=== PATIENT | female | born 1980 | race African-American/Black ===

== ENCOUNTER → 2018-04-20 | Day surgery (SDC) | payer OTHER ==
[~2018-04-20] MED LIST: BISO1TAB7 PO; IV RINGERS,LACTATED 1000ML 1,000 ML IV SCH; LIDOCAINE 1% PF 2 ML VIAL. ID PRN; MIDAZOLAM HCL/PF 2 MG/2 ML VIAL. IV PRN; NORE-68 PO; PROPOFOL 40 ML IV ONE; fentaNYL PF VIAL 100 MCG/2 ML VIAL IV PRN
[2018-04-20 12:31] LABS: U PREG PATIENT NEGATIVE (NEG)
[2018-04-20 13:25] VITALS: BP 148/62
== END | disposition home or self-care (01) ==
LOC: SURG 11:50
PROVIDERS: ATTEND Internal Medicine Gastroenterology
DX: K64.0 First degree hemorrhoids (principal); I10 Essential (primary) hypertension; Z80.0 Family history of malignant neoplasm of digestive organs; Z82.49 Family history of ischemic heart disease and other diseases of the circulatory system; Z72.89 Other problems related to lifestyle; Z79.899 Other long term (current) drug therapy
CPT/HCPCS: 45378; 81025; J2704

== ENCOUNTER → 2021-06-16 | Outpatient (CLI) | payer OTHER ==
[2018-04-20 13:25] VITALS: BP 148/62
[~2021-06-16] MED LIST changes: -BISO1TAB7 PO; +BISO1TAB84 PO; -IV RINGERS,LACTATED 1000ML 1,000 ML IV SCH; -LIDOCAINE 1% PF 2 ML VIAL. ID PRN; -MIDAZOLAM HCL/PF 2 MG/2 ML VIAL. IV PRN; -PROPOFOL 40 ML IV ONE; -fentaNYL PF VIAL 100 MCG/2 ML VIAL IV PRN
--- NOTE | 2021-06-16 17:12 | RAD ---
EXAM: ULTRASOUND PELVIS INDICATION: Reason: Fibroids; Heavy menses and PCOS : . COMPARISON: None available. TECHNIQUE: Transabdominal and transvaginal pelvic sonography was performed. FINDINGS: The uterus is 9.9 x 5.2 x 4.8 cm in size. The myometrium is heterogeneous with several focal lesions seen including a partially exophytic mass projecting posteriorly from the body of the uterus measurin g 3.4 x 2.2 cm. Another fibroid is seen anteriorly in the body of the uterus measuring 1.6 x 1.1 cm. The endometrial stripe is a 3 mm in thickness, normal. The right ovary is 4.3 x 3.8 x 3 cm and the left ovary is 3.1 x 2.2 x 2.2 cm. From the right ovary demonstrate a complex lesion with increased through transmission noted and no in ternal vascularity seen measuring 3.6 cm probably related to hemorrhagic cyst. Arterial waveforms are seen in the ovarian tissue around it. Arterial waveforms are demonstrated in the left ovary. No sign ificant free fluid or fluid collection pelvis is seen. IMPRESSION: 1. Multiple uterine fibroids. 2. Right ovarian 3.6 cm lesion likely related to hemorrhagic cyst. Electronically signed by: Jeison Resendiz MD (06/16/2021 5:09 PM) [id number]
== END ==
LOC: US 14:58
PROVIDERS: ATTEND Obstetrics & Gynecology
DX: D25.9 Leiomyoma of uterus, unspecified (principal); N83.8 Other noninflammatory disorders of ovary, fallopian tube and broad ligament; E28.2 Polycystic ovarian syndrome
CPT/HCPCS: 76830; 76856

== ENCOUNTER 2021-08-13 06:24 | Inpatient (IN) | payer OTHER ==
[~2021-08-13] VITALS: Ht 162.6 cm; Wt 94.8 kg
[2021-08-13] VITALS (8 sets, daily range): BP systolic 95–151; BP diastolic 53–82
[2021-08-13] MEDS ORDERED: ROCURONIUM 100 MG/10 ML VIAL. ONE (06:39)
[2021-08-13] MEDS ORDERED: PROPOFOL 10 MG/ML (20ML) VIAL. IV ONE (06:39)
[2021-08-13] MEDS ORDERED: DEXAMETHASONE SOD PHOS 4 MG/ML VIAL ONE (06:40)
[2021-08-13] MEDS ORDERED: ONDANSETRON PF 4 MG/2 ML VIAL. ONE (06:40)
[2021-08-13] MEDS ORDERED: GLYCOPYRROLATE 1 MG/5 ML VIAL. ONE (06:40)
[2021-08-13] MEDS ORDERED: fentaNYL PF VIAL 100 MCG/2 ML VIAL ONE ×2 (06:41→11:25)
--- NOTE | 2021-08-13 06:59 | PDOC1 ---
CORPORATE STATISTICAL FINANCIAL ANALYST H&P Date of Admission: Date of Admission: History of Present Illness: 41y presents for scheduled surgery. The pt was seen on 06/03/21 for eval of fibroids. She was noted to have anemia (Hgb 9.5). She also reported being on Metformin for PCOS. An u/s was ordered at the last visit. The u/s on 06/16/21 revealed the following: FINDINGS: The uterus is 9.9 x 5.2 x 4.8 cm in size. The myometrium is heterogeneous with several focal lesions seen including a partially exophytic mass projecting posteriorly from the body of the uterus measuring 3.4 x 2.2 cm. Another fibroid is seen anteriorly in the body of the uterus measuring 1.6 x 1.1 cm. The endometrial stripe is a 3 mm in thickness, normal. The right ovary is 4.3 x 3.8 x 3 cm and the left ovary is 3.1 x 2.2 x 2.2 cm. From the right ovary demonstrate a complex lesion with increased through transmission noted and no internal vascularity seen measuring 3.6 cm probably related to hemorrhagic cyst. Arterial waveforms are seen in the ovarian tissue around it. Arterial waveforms are demonstrated in the left ovary. No significant free fluid or fluid collection pelvis is seen. IMPRESSION: 1. Multiple uterine fibroids. 2. Right ovarian 3.6 cm lesion likely related to hemorrhagic cyst. The pt desired definitive tx for her fibroids and menorrhagia. She would prefer retention of her ovaries. 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 Regular monthly periods. Heavy SH: no tob, no EtOH FH: Colon Ca, HTN, Diabetes, HLD. Allergies: Coded Allergies: No Known Drug Allergies (Unverified , 08/13/21) Physical Exam: Vital Signs: Vital Signs Date Time Temp Pulse Resp B/P (MAP) Pulse Ox O2 Delivery O2 Flow Rate FiO2 08/13/21 06:53 97.0 66 20 151/77 98 Room Air 97.0 PE: GENERAL: No apparent distress. Alert and oriented. HEENT: Head normocephalic, atraumatic. NECK: Supple LUNGS: Clear to auscultation. HEART: RRR, S1, S2 present, pulses intact ABDOMEN: Soft, positive bowel sounds. EXTREMITIES: No cyanosis or edema. NEUROLOGIC: Normal speech, normal tone PSYCHIATRIC: Normal affect, normal mood. SKIN: No ulceration. Labs: Laboratory Tests Test 08/13/21 06:46 POC Urine HCG, Qualitative Hcg negative (Negative) Assessment & Plan: A/P 41y with fibroids, menorrhagia, and dysmenorrhea 1.) Fibroids - scheduled for LAVH 2.) Menorrhagia - as above 3.) Dysmenorrhea - as above 4.) Anemia - Hgb 9.5. on ferrous fumurate 5.) PCOS - expectant management 6.) HTN - per PCP 7.) Contraception - none 8.) Logistics Management Specialist screening - pap (05/25/21) ALYSHA Kathleen MD Aug 13, 2021 06:59
[2021-08-13] MEDS ORDERED: IV RINGERS,LACTATED 1000ML 1,000 ML IV SCH ×3 (07:00→11:30)
[2021-08-13 07:50] LABS: BASO % 0 % (0-3); EOS # 0.1 x10^3/uL (0.0-0.7); EOS % 1 % (0-3); HEMATOCRIT 28.9 % (36.0-47.0); HEMOGLOBIN 8.9 g/dL (12.0-15.5); LYMPH # 1.9 x10^3/uL (1.0-4.8); LYMPH % 32 % (24-48); MEAN CORPUSCULAR HEMOGLOBIN 22 pg (25-35); MEAN CORPUSCULAR HGB CONC 31 g/dL (31-37); MEAN CORPUSCULAR VOLUME 73 fL (79-100); MONO # 0.6 x10^3/uL (0.0-1.1); MONO % 10 % (0-9); NEUT # 3.5 x10^3/uL (1.8-7.7); NEUT % 57 % (31-73); PLATELET COUNT 330 x10^3/uL (140-400); RED BLOOD COUNT 3.98 x10^6/uL (3.50-5.40); RED CELL DISTRIBUTION WIDTH 16.7 % (11.5-14.5); WHITE BLOOD COUNT 6.1 x10^3/uL (4.0-11.0)
[2021-08-13 07:59] LABS: CALCIUM 8.4 mg/dL (8.5-10.1); CREATININE 0.8 mg/dL (0.6-1.0); GFR 96.6; POTASSIUM 3.9 mmol/L (3.5-5.1)
[2021-08-13] MEDS ORDERED: METHYLENE BLUE 0.5% 10ml AMPULE. ONE (08:21)
[2021-08-13] MEDS ORDERED: SCOPOLAMINE 1.5MG PATCH. TD ONE (08:30)
[2021-08-13] MEDS ORDERED: HYDROmorphone 2 MG/ML INJ. ONE (08:56)
[2021-08-13] MEDS ORDERED: SUGAMMADEX SODIUM 200 MG/2 ML VIAL. IVP ONE (09:00)
[2021-08-13 10:14] LABS: PLT ESTIMATE ADEQUATE (ADEQUATE)
[2021-08-13 10:15] LABS: ANISOCYTOSIS PRESENT; HYPOCHROMIA MOD; MICROCYTOSIS PRESENT
[2021-08-13] MEDS ORDERED: ALBUMIN HUMAN 5% 500 ML IV ONE (10:41)
[2021-08-13] MEDS ORDERED: PHENYLEPHRINE in 0.9% NACL PF 1 MG/10 ML SYRINGE. IV ONE (10:41)
[2021-08-13] MEDS ORDERED: MORPHINE SULFATE 2 MG/ML INJ. IVP PRN ×2 (11:00→11:30)
[2021-08-13] MEDS ORDERED: fentaNYL PF VIAL 100 MCG/2 ML VIAL IVP PRN ×3 (11:00→11:30)
[2021-08-13] MEDS ORDERED: PROCHLORPERAZINE 10 MG/2 ML VIAL. IVP PRN ×2 (11:00→11:30)
[2021-08-13] MEDS ORDERED: HYDROmorphone 2 MG/ML INJ. IVP PRN ×2 (11:00→11:30)
--- NOTE | 2021-08-13 11:00 | PDOC4 ---
OPERATIVE NOTE: PreOp Dx: 1.) Fibroids, 2.) Menorrhagia, 3.) Dysmenorrhea, 4.) Anemia, 5.) PCOS, 6.) HTN PostOp Dx: same Procedure: LAVH/BS Surgeon: Maury Oglesby Anesthesia: GETA EBL: 400 cc Fluids: 1200 crystalloid, 500 colloid UOP: 200 cc Findings: Enlarge uterus, nml tubes and ovaries Complications: None Specimen: Uterus, bilateral tubes, and cervix ALYSHA OGLESBY MD Aug 13, 2021 11:00
[2021-08-13 11:05] LABS: HEMATOCRIT 20.3 % (36.0-47.0); RED BLOOD COUNT 2.82 x10^6/uL (3.50-5.40); RED CELL DISTRIBUTION WIDTH 16.8 % (11.5-14.5)
[2021-08-13 11:15] LABS: HEMOGLOBIN 6.3 g/dL (12.0-15.5)
[2021-08-13] MEDS ORDERED: diphenhydrAMINE 50 MG/ML VIAL IV PRN (11:15)
[2021-08-13] MEDS ORDERED: IV NORMAL SALINE 1000ML BAG 1,000 ML IV SCH (11:15)
[2021-08-13] MEDS ORDERED: MORPHINE SULFATE 2 MG/ML INJ. IV PRN (11:15)
[2021-08-13] MEDS ORDERED: diphenhydrAMINE HCL 25 MG CAPSULE PO PRN (11:15)
[2021-08-13] MEDS ORDERED: NALOXONE 0.4 MG/ML VIAL. IV PRN (11:15)
[2021-08-13] MEDS ORDERED: DEXTROSE 50% 25 GM / 50ML DISP.SYRIN. IV PRN (11:15)
[2021-08-13] MEDS ORDERED: KETOROLAC 15 MG/ML VIAL. IV PRN (11:15)
[2021-08-13] MEDS ORDERED: 0.9 % SODIUM CHLORIDE 10 ML DISP.SYRIN. IV PRN (11:15)
[2021-08-13] MEDS: fentaNYL PF VIAL 100 MCG/2 ML VIAL IVP PRN ×2 (11:31→11:44)
[2021-08-13] MEDS ORDERED: MORPHINE SULFATE 2 MG/ML INJ. ONE (11:59)
[2021-08-13] MEDS: IV DEXTROSE 5 %-0.45 % NACL 1,000 ML IV SCH ×2 (12:00→20:55)
[2021-08-13] MEDS: MORPHINE SULFATE 2 MG/ML INJ. IV PRN ×2 (12:02→12:10)
--- NOTE | 2021-08-13 12:07 | OP ---
DATE OF SURGERY: 08/13/2021 PREOPERATIVE DIAGNOSES: 1. Fibroids. 2. Menorrhagia. 3. Dysmenorrhea. 4. Anemia. 5. Polycystic ovary syndrome. 6. Hypertension. POSTOPERATIVE DIAGNOSES: 1. Fibroids. 2. Menorrhagia. 3. Dysmenorrhea. 4. Anemia. 5. Polycystic ovary syndrome. 6. Hypertension. PROCEDURE: Laparoscopic-assisted vaginal hysterectomy with bilateral salpingectomy. SURGEON: Rayshawn Gamez MD ANESTHESIA: General endotracheal intubation. ESTIMATED BLOOD LOSS: 400 mL. FLUIDS: 1200 of crystalloid and 500 of colloid. URINE OUTPUT: 200 mL. FINDINGS: Enlarged uterus, normal tubes and ovaries. COMPLICATIONS: None. SPECIMENS: Uterus, cervix and bilateral tubes. DESCRIPTION OF PROCEDURE: The patient was taken to the operating room where general endotracheal intubation was obtained without difficulty. The patient was prepped and draped in normal sterile fashion. Attention was first turned to the vagina where a speculum was placed to visualize the cervix. Anterior lip of the cervix was then grasped with a single tooth tenaculum. An acorn uterine manipulator was then placed in the uterine cavity. At that point, the speculum was removed. A Vazquez catheter was placed in the patient's bladder. Attention was then turned to the abdomen where a 5 mm skin incision was made in her infraumbilical fold. A Veress needle was introduced into the incision. The opening pressure was found to be greater than 15 mmHg, so it was felt that the Veress needle was not in the peritoneal cavity. At that point, the Veress needle was removed and a 5 mm trocar was placed directly into the abdomen. Intraabdominal placement was confirmed with laparoscope. At that point, the abdomen was insufflated to 15 mmHg. A second trocar was then placed on the left approximately two-thirds between the ischial spine and the umbilicus first by making a 5 mm skin incision and then placing a 5 mm trocar under direct visualization of the laparoscope. Attention was then turned to the right side where a 5 mm trocar was then placed in similar fashion, first by placing a 5 mm skin incision approximately two-thirds between the ischial spine and the umbilicus and then placing a 5 mm trocar under direct visualization of the laparoscope. The visualization of the pelvis revealed an enlarged uterus, but otherwise normal anatomy. At that point, attention was then turned to the left tube, which was grasped at the fimbria and elevated. The tube was then from the ovary to the level of the uterus. Once the fallopian tube was free, the round ligament on the left was then grasped and the LigaSure device was used to coagulate and cut through the round ligament. LigaSure device was then used to serially coagulate and cut to the level of the uterine arteries. At that point, the peritoneum was undermined to allow for a bladder flap to be created. Bladder flap was then brought to the midline. A few additional bites of the uterine pedicles were then taken on the left with the LigaSure device. Attention was then turned to the right where in similar fashion, the right tube was grasped and from the ovary. Once it had been taken to the level of the uterus, the round ligament on the right was then grasped and the LigaSure device was used to coagulate and cut through. Additional bites of the LigaSure device were used to coagulate and cut serially through the uterine arteries. At that point, the peritoneum was undermined again to allow for completion of the bladder flap. Once this was accomplished, a few additional bites were then taken on the right. At that point, attention was then turned to the vagina where cervix was circumferentially cut with the Bovie device. Once this had been performed, Metzenbaum scissors were used to enter the anterior cul-de-sac. Once the anterior cul-de-sac had been entered, attention was then turned to entering the posterior cul-de-sac, which was done with Duval scissors. At that point, the left uterosacral ligament was then grasped with a Mann clamp. This was then clamped, cut, and tagged. This was then performed with the right uterosacral ligament where Mann clamp was used to clamp the uterosacral ligament, which was cut and then tagged. The uterus was then serially clamped and tied until all the pedicles were free. On delivery of the uterus, the last pedicle on the left tore and there was some bleeding noted. The pedicle was then grasped with a Pean and once the vessel was isolated, Mann clamp was placed around the pedicle. Good hemostasis was noted. An additional tie was then placed, which achieved hemostasis. At that point, the vaginal cuff was then closed, first by making a wndfdw-wt-dimjg stitch on the left with the first pass including the left uterosacral ligament. This was then tagged. Attention was then turned to the right side of the cuff, which again a lcnbda-vx-ozpth stitch was placed with the first pass including the right uterosacral ligament. This again was tagged. Three additional xhuowe-qj-tgkvg stitches were then placed to close the remainder of the cuff. At that point, good hemostasis was noted. Cuff was then irrigated and good hemostasis remained. At that point, attention was turned to the abdomen. Once again survey of the vaginal cuff laparoscopically revealed good hemostasis. At that point, the ureters were observed to be peristalsing. The peritoneum was then irrigated and good hemostasis was noted. At that point, the instruments were removed as well as the trocar. Laparoscopic incision was then closed with 4-0 Monocryl in an interrupted fashion. The patient tolerated the procedure well and was taken to the recovery room in stable condition. Sponge, laps and needles were correct x 3. Two grams of Ancef was given prior to the procedure. SUMAYA/ELIANA DR: Man TID: [id number]
[2021-08-13] MEDS: oxyCODONE/APAP 5/325 1 TAB TABLET PO PRN ×2 (14:38→20:41)
[2021-08-13 15:47] LABS: HEMATOCRIT 23.2 % (36.0-47.0); HEMOGLOBIN 7.1 g/dL (12.0-15.5); RED BLOOD COUNT 3.25 x10^6/uL (3.50-5.40); RED CELL DISTRIBUTION WIDTH 16.4 % (11.5-14.5); WHITE BLOOD COUNT 11.3 x10^3/uL (4.0-11.0)
[2021-08-13] MEDS ORDERED: DOCUSATE SODIUM 100 MG CAPSULE. PO SCH (21:00)
[2021-08-14] VITALS (17 sets, daily range): BP systolic 86–132; BP diastolic 47–69
[2021-08-14] MEDS: oxyCODONE/APAP 5/325 1 TAB TABLET PO PRN ×4 (03:08→19:38)
[2021-08-14 07:57] LABS: BASO % 0 % (0-3); EOS % 0 % (0-3); HEMATOCRIT 19.6 % (36.0-47.0); LYMPH # 1.9 x10^3/uL (1.0-4.8); LYMPH % 27 % (24-48); MEAN CORPUSCULAR HEMOGLOBIN 22 pg (25-35); MEAN CORPUSCULAR HGB CONC 31 g/dL (31-37); MEAN CORPUSCULAR VOLUME 72 fL (79-100); MONO # 0.6 x10^3/uL (0.0-1.1); MONO % 9 % (0-9); NEUT # 4.5 x10^3/uL (1.8-7.7); NEUT % 64 % (31-73); PLATELET COUNT 260 x10^3/uL (140-400); RED BLOOD COUNT 2.74 x10^6/uL (3.50-5.40); RED CELL DISTRIBUTION WIDTH 16.5 % (11.5-14.5); WHITE BLOOD COUNT 7.1 x10^3/uL (4.0-11.0)
[2021-08-14 08:06] LABS: HEMOGLOBIN 6.1 g/dL (12.0-15.5)
[2021-08-14 08:20] LABS: CALCIUM 7.8 mg/dL (8.5-10.1); CREATININE 0.8 mg/dL (0.6-1.0); GFR 96.6; POTASSIUM 3.4 mmol/L (3.5-5.1)
--- NOTE | 2021-08-14 08:27 | PDOC ---
LINING STAMPER PROGRESS NOTE Date of Service: DATE: 08/14/21 TIME: 08:26 Subjective: Pt with good pain control. Arturo PO. Voiding. No VB. Objective: Vital Signs: Vital Signs Date Time Temp Pulse Resp B/P (MAP) Pulse Ox O2 Delivery O2 Flow Rate FiO2 08/13/21 11:04 98.4 75 16 148/61 100 Simple Mask 6 98.4 Vital Signs Date Time Temp Pulse Resp B/P (MAP) Pulse Ox O2 Delivery O2 Flow Rate FiO2 08/14/21 05:18 98.5 87 18 104/67 (79) 98 Room Air 98.5 08/13/21 11:31 6.0 Labs: Laboratory Tests Test 08/13/21 10:24 08/13/21 15:40 08/14/21 06:35 White Blood Count 5.0 x10^3/uL (4.0-11.0) 11.3 x10^3/uL (4.0-11.0) H 7.1 x10^3/uL (4.0-11.0) Red Blood Count 2.82 x10^6/uL (3.50-5.40) L 3.25 x10^6/uL (3.50-5.40) L 2.74 x10^6/uL (3.50-5.40) L Hemoglobin 6.3 g/dL (12.0-15.5) *L 7.1 g/dL (12.0-15.5) L 6.1 g/dL (12.0-15.5) *L Hematocrit 20.3 % (36.0-47.0) L 23.2 % (36.0-47.0) L 19.6 % (36.0-47.0) L Mean Corpuscular Volume 72 fL (79-100) L 71 fL (79-100) L 72 fL (79-100) L Mean Corpuscular Hemoglobin 22 pg (25-35) L 22 pg (25-35) L 22 pg (25-35) L Mean Corpuscular Hemoglobin Concent 31 g/dL (31-37) 31 g/dL (31-37) 31 g/dL (31-37) Red Cell Distribution Width 16.8 % (11.5-14.5) H 16.4 % (11.5-14.5) H 16.5 % (11.5-14.5) H Platelet Count 256 x10^3/uL (140-400) 291 x10^3/uL (140-400) 260 x10^3/uL (140-400) Neutrophils (%) (Auto) 64 % (31-73) Lymphocytes (%) (Auto) 27 % (24-48) Monocytes (%) (Auto) 9 % (0-9) Eosinophils (%) (Auto) 0 % (0-3) Basophils (%) (Auto) 0 % (0-3) Neutrophils # (Auto) 4.5 x10^3/uL (1.8-7.7) Lymphocytes # (Auto) 1.9 x10^3/uL (1.0-4.8) Monocytes # (Auto) 0.6 x10^3/uL (0.0-1.1) Eosinophils # (Auto) 0.0 x10^3/uL (0.0-0.7) Basophils # (Auto) 0.0 x10^3/uL (0.0-0.2) Laboratory Tests 08/13/21 10:24 08/13/21 15:40 08/14/21 06:35 Laboratory Tests 08/14/21 06:35 Physical Exam: GENERAL: No apparent distress. Alert and oriented. HEENT: Head normocephalic, atraumatic. NECK: Supple LUNGS: Clear to auscultation. HEART: RRR, S1, S2 present, pulses intact ABDOMEN: Soft, positive bowel sounds. EXTREMITIES: No cyanosis or edema. NEUROLOGIC: Normal speech, normal tone PSYCHIATRIC: Normal affect, normal mood. SKIN: No ulceration. CTAB RRR S/NT/ND Port site Inc: dressing dry No C/C/E Assessment & Plan: A/P 41y POD #1 s/p LAVH/BS 1.) PO doing well 2.) Path pending 3.) Indication - fibroids, menorrhagia, and dysmenorrhea 4.) Anemia Hgb 8.9 -> 6.1, will given 2U pRBC 5.) PCOS - expectant management 6.) HTN - per PCP 7.) Cont PO care ALYSHA OGLESBY MD Aug 14, 2021 08:27
[2021-08-14] MEDS: IBUPROFEN 200 MG TABLET. PO PRN ×2 (11:08→18:08)
[2021-08-14 18:27] LABS: BASO # 0.1 x10^3/uL (0.0-0.2); BASO % 1 % (0-3); EOS # 0.1 x10^3/uL (0.0-0.7); EOS % 1 % (0-3); HEMATOCRIT 26.9 % (36.0-47.0); HEMOGLOBIN 8.6 g/dL (12.0-15.5); LYMPH # 3.7 x10^3/uL (1.0-4.8); LYMPH % 37 % (24-48); MEAN CORPUSCULAR HEMOGLOBIN 24 pg (25-35); MEAN CORPUSCULAR HGB CONC 32 g/dL (31-37); MEAN CORPUSCULAR VOLUME 76 fL (79-100); MONO # 0.7 x10^3/uL (0.0-1.1); MONO % 7 % (0-9); NEUT # 5.6 x10^3/uL (1.8-7.7); NEUT % 55 % (31-73); PLATELET COUNT 214 x10^3/uL (140-400); RED BLOOD COUNT 3.56 x10^6/uL (3.50-5.40); RED CELL DISTRIBUTION WIDTH 18.4 % (11.5-14.5); WHITE BLOOD COUNT 10.1 x10^3/uL (4.0-11.0)
[2021-08-15] MEDS: oxyCODONE/APAP 5/325 1 TAB TABLET PO PRN ×3 (00:30→11:19)
[2021-08-15] MEDS: IBUPROFEN 200 MG TABLET. PO PRN ×2 (01:37→08:40)
[2021-08-15 01:44] VITALS: BP 113/58
[2021-08-15] MEDS: IV DEXTROSE 5 %-0.45 % NACL 1,000 ML IV SCH (01:46)
[2021-08-15 06:16] LABS: BASO % 1 % (0-3); EOS # 0.1 x10^3/uL (0.0-0.7); EOS % 1 % (0-3); HEMOGLOBIN 8.2 g/dL (12.0-15.5); LYMPH # 3.8 x10^3/uL (1.0-4.8); LYMPH % 46 % (24-48); MEAN CORPUSCULAR HEMOGLOBIN 25 pg (25-35); MEAN CORPUSCULAR HGB CONC 33 g/dL (31-37); MEAN CORPUSCULAR VOLUME 76 fL (79-100); MONO # 0.5 x10^3/uL (0.0-1.1); MONO % 6 % (0-9); NEUT # 3.9 x10^3/uL (1.8-7.7); NEUT % 46 % (31-73); PLATELET COUNT 221 x10^3/uL (140-400); RED BLOOD COUNT 3.29 x10^6/uL (3.50-5.40); RED CELL DISTRIBUTION WIDTH 18.1 % (11.5-14.5); WHITE BLOOD COUNT 8.3 x10^3/uL (4.0-11.0)
[2021-08-15 07:54] VITALS: BP 117/75
[2021-08-15] MEDS ORDERED: OXYC1TAB15 PO (08:20)
--- NOTE | 2021-08-15 08:33 | PDOC ---
TELEPHONE ADVICE NURSE PROGRESS NOTE Date of Service: DATE: 08/15/21 TIME: 08:33 Subjective: Pt with good pain control. Arturo PO. Voiding. No VB. Objective: Vital Signs: Vital Signs Date Time Temp Pulse Resp B/P (MAP) Pulse Ox O2 Delivery O2 Flow Rate FiO2 08/14/21 08:40 98.8 62 18 100/56 (71) 98 Room Air 98.8 Vital Signs Date Time Temp Pulse Resp B/P (MAP) Pulse Ox O2 Delivery O2 Flow Rate FiO2 08/15/21 07:54 98.8 61 18 117/75 (89) 98 Room Air 98.8 Labs: Laboratory Tests Test 08/14/21 18:19 08/15/21 03:30 White Blood Count 10.1 x10^3/uL (4.0-11.0) 8.3 x10^3/uL (4.0-11.0) Red Blood Count 3.56 x10^6/uL (3.50-5.40) 3.29 x10^6/uL (3.50-5.40) L Hemoglobin 8.6 g/dL (12.0-15.5) #L 8.2 g/dL (12.0-15.5) L Hematocrit 26.9 % (36.0-47.0) L 25.0 % (36.0-47.0) L Mean Corpuscular Volume 76 fL (79-100) #L 76 fL (79-100) L Mean Corpuscular Hemoglobin 24 pg (25-35) L 25 pg (25-35) Mean Corpuscular Hemoglobin Concent 32 g/dL (31-37) 33 g/dL (31-37) Red Cell Distribution Width 18.4 % (11.5-14.5) H 18.1 % (11.5-14.5) H Platelet Count 214 x10^3/uL (140-400) 221 x10^3/uL (140-400) Neutrophils (%) (Auto) 55 % (31-73) 46 % (31-73) Lymphocytes (%) (Auto) 37 % (24-48) 46 % (24-48) Monocytes (%) (Auto) 7 % (0-9) 6 % (0-9) Eosinophils (%) (Auto) 1 % (0-3) 1 % (0-3) Basophils (%) (Auto) 1 % (0-3) 1 % (0-3) Neutrophils # (Auto) 5.6 x10^3/uL (1.8-7.7) 3.9 x10^3/uL (1.8-7.7) Lymphocytes # (Auto) 3.7 x10^3/uL (1.0-4.8) 3.8 x10^3/uL (1.0-4.8) Monocytes # (Auto) 0.7 x10^3/uL (0.0-1.1) 0.5 x10^3/uL (0.0-1.1) Eosinophils # (Auto) 0.1 x10^3/uL (0.0-0.7) 0.1 x10^3/uL (0.0-0.7) Basophils # (Auto) 0.1 x10^3/uL (0.0-0.2) 0.0 x10^3/uL (0.0-0.2) Laboratory Tests 08/14/21 18:19 08/15/21 03:30 Laboratory Tests 08/15/21 03:30 Physical Exam: GENERAL: No apparent distress. Alert and oriented. HEENT: Head normocephalic, atraumatic. NECK: Supple LUNGS: Clear to auscultation. HEART: RRR, S1, S2 present, pulses intact ABDOMEN: Soft, positive bowel sounds. EXTREMITIES: No cyanosis or edema. NEUROLOGIC: Normal speech, normal tone PSYCHIATRIC: Normal affect, normal mood. SKIN: No ulceration. CTAB RRR S/NT/ND Port site Inc: dressing dry No C/C/E Assessment & Plan: A/P 41y POD #1 s/p LAVH/BS 1.) PO doing well 2.) Path pending 3.) Indication - fibroids, menorrhagia, and dysmenorrhea 4.) Anemia Hgb 8.9 -> 6.1 ->2U pRBC -> 8.2 5.) PCOS - expectant management 6.) HTN - per PCP 7.) D/c home ALYSHA OGLESBY MD Aug 15, 2021 08:33
--- NOTE | 2021-08-15 09:19 | DS ---
DATE OF DISCHARGE: 08/15/2021 ADMISSION DIAGNOSES: 1. Fibroids. 2. Menorrhagia. 3. Dysmenorrhea. 4. Anemia. 5. Polycystic ovary syndrome. 6. Hypertension. DISCHARGE DIAGNOSES: 1. Fibroids. 2. Menorrhagia. 3. Dysmenorrhea. 4. Anemia. 5. Polycystic ovary syndrome. 6. Hypertension. PROCEDURE: Laparoscopic-assisted vaginal hysterectomy with bilateral salpingectomy. BRIEF HOSPITAL COURSE: The patient a 41-year-old 3, para 2-0-1-2, who presented to the office on 06/03/2021 for evaluation of fibroids. The patient was noted to have a hemoglobin of 9.5. The patient had been on metformin for PCOS. The patient underwent an ultrasound revealing her to have an enlarged uterus with fibroids. Discussion was held with the patient regarding treatment options. The patient desired definitive surgery and desired preservation of her ovaries. The patient underwent a laparoscopic-assisted vaginal hysterectomy with bilateral salpingectomy on 08/13/2021, see operative note for full detail. After that procedure, the patient had a repeat hemoglobin that showed it to have dropped to 6.3. This was thought to be artifact, so it was checked later that afternoon, it was found to be only 7.1. The following morning, her hemoglobin was found to be 6.1. At that time, 2 units of hemoglobin were given to the patient. The following day, her hemoglobin was found to have an appropriate rise of 8.2. The patient was meeting all discharge criteria at that time and was subsequently discharged home. DISCHARGE INSTRUCTIONS: The patient was told not to lift anything greater than 20 pounds, have pelvic rest for [address] on narcotics. CALL IF: The patient was to call if she had fevers, chills, nausea, vomiting, abdominal pain or any additional questions or concerns. FOLLOWUP APPOINTMENT: The patient was to follow up on 08/20/2021 at 10:00 a.m. for her incision check. DISCHARGE MEDICATIONS: The patient was given a prescription for Percocet 5, 15 pills; Motrin 800 mg, 30 pills and Colace 100 mg, 30 pills. DMITRIY/ANAND DR: Man TID: [id number]
[2021-08-15 11:20] VITALS: BP 108/67
--- NOTE | 2021-08-17 15:07 | PATHOLOGY ---
[facility] Accession Number: [id number] . 01 Material submitted: . uterus - UTERUS, CERVIX, BILATERAL FALLOPIAN TUBES . 01 Clinical history: . FIBROIDS . 02 Diagnosis: Uterus and attached bilateral fallopian tubes, laparoscopic assisted vaginal hysterectomy with bilateral salpingectomy: - Leiomyomas, uterine corpus, submucosal and intramural, multiple, the largest measuring 3.0 cm in greatest dimension (uterine weight 137 grams). - Late proliferative/early secretory endometrium, focally attenuated over submucosal leiomyoma. - Congestion of bilateral fallopian tubes. (JPM:lorna; 08/17/2021) [facility] 08/17/2021 1427 Local . 02 Comment: There is no atypia or evidence of malignancy. (JPM:lorna; 08/17/2021) . 02 Electronically signed: . Varinder Dyer MD, Pathologist NPI- [id number] . 01 Gross description: . Fixative: Formalin Labeled: Uterus, cervix, bilateral fallopian tubes Specimen received: Uterus with attached cervix and attached bilateral fallopian tubes Uterus weight: 137 g Uterus: 9.3 x 5.8 x 5.4 cm Serosa: Brumley-gipson to pink-grey, smooth Ectocervix: Brumley-grey, smooth to wrinkled Cervical os: Slit-like, measuring 1.0 cm Endocervical canal: 2.8 cm Endometrial cavity: 5.4 x 1.8 cm Endometrium: Pale gipson, glistening Endometrial thickness: 0.1 cm Myometrium: Gipson-pink, trabeculated Myometrium thickness: Up to 3.4 cm Lesions/abnormalities: Displaying multiple intramural and sbumucosal fibroids ranging in size from 0.2-3.0 cm in maximum dimensions Left fallopian tube: 4 g, fimbriated; 5.7 cm in length, up to 0.8 cm in diameter Left fallopian tube cut surface: Pinpoint to patent lumen Right fallopian tube: 4 g, fimbriated; 6.7 cm in length, up to 0.7 cm in diameter Right fallopian tube cut surface: Patent lumen . Store Worker sections are submitted as follows: A1 12:00 cervix A2 6:00 cervix A3 anterior endomyometrium A4 posterior endomyometrium A5-A6 sales representative meats sections of fibroids A7 sales representative meats sections from left fallopian tube, to include fimbria A8 sales representative meats sections from right fallopian tube, to include fimbria (CAA; 08/14/2021) QAC/QAC 08/17/2021 0925 Local . 02 Pathologist provided ICD-10: D25.1 . 02 CPT . 565350 Specimen Comment: A courtesy copy of this report has been sent to [phone], [phone] Specimen Comment: [id number] Specimen Comment: Report sent to / DR ARGUETA Performed at: 01 [facility] [address] [facility] [address], [place] [id number] MD Stephane Solis MD Phone: [phone] Performed at: 02 [facility] [address] [place], [place] [id number] MD Varinder Dyer MD Phone: [phone]
== END 2021-08-15 11:38 | disposition home or self-care (01) | DRG 742 ==
LOC: SURG 06:24 → MERGE 08:30 → 3 NORTH 11:08 → OBSVTOIN 08-14 10:53
PROVIDERS: ADMIT Obstetrics & Gynecology; ATTEND Obstetrics & Gynecology
PROC: 0UT7FZZ Resection of Bilateral Fallopian Tubes, Via Natural or Artificial Opening With Percutaneous Endoscopic Assistance (ICD-10-PCS; 2021-08-13)
PROC: 0UT9FZZ Resection of Uterus, Via Natural or Artificial Opening With Percutaneous Endoscopic Assistance (ICD-10-PCS; principal; 2021-08-13 08:30)
PROC: 30233N1 Transfusion of Nonautologous Red Blood Cells into Peripheral Vein, Percutaneous Approach (ICD-10-PCS; 2021-08-14)
DX: D25.9 Leiomyoma of uterus, unspecified (principal); C18.9 Malignant neoplasm of colon, unspecified; D64.9 Anemia, unspecified; E28.2 Polycystic ovarian syndrome; E78.5 Hyperlipidemia, unspecified; I10 Essential (primary) hypertension; N92.0 Excessive and frequent menstruation with regular cycle; N94.6 Dysmenorrhea, unspecified; Z79.899 Other long term (current) drug therapy; Z86.32 Personal history of gestational diabetes; Z20.822 Contact with and (suspected) exposure to COVID-19
CPT/HCPCS: 36415; 36430; 80048; 81025; 85025; 85027; 86850; 86900; 86901; 86920; A4314; A4322; A4452; A4657; A4930; G0378; G0379; J0690; J1100; J1170; J1885; J2270; J2370; J2405; J2704; J3010; J3490; J7042; P9016; P9045; Q9968; Q0163